=== PATIENT | female | born 1960 | race African-American/Black ===

== ENCOUNTER 2016-12-08 14:16 | Observation (INO) | payer BC, OTHER ==
[~2016-12-08] VITALS: Ht 172.7 cm; Wt 156.7 kg
[~2016-12-08 14:16] MED LIST: Aspirin E.C. PO; CALAN120 MG PO; CORTISONE INJECTION IU; CYANOCOBALAMI100 MCG PO; ECZEMA CREAM TP; FLECAINIDE ACE100 MG PO; FLECAINIDE ACET50 MG PO; HYDROCHLOROTHIA25 MG PO; NEURONTIN100 MG PO; ST. JOSEPH ASPI81 MG PO; TAMBOCOR50 MG PO; VENTOLIN HFA18 GM IH; VERAPAMIL HCL120 M2 PO; VERAPAMIL HCL120 MG PO; XARELTO20 MG PO
[2016-12-08 15:22] LABS: BASOPHIL COUNT 0.1 K/uL (0-0.1); EOSINOPHIL (%) 3.2 % (0-5); EOSINOPHIL COUNT 0.2 K/uL (0-0.3); IMMATURE GRANULOCYTE (%) 0.2 % (0.0-0.7); INSTRUMENT ABS NEUTROPHIL CT 2.4 K/uL; MCH 30.5 PG (29.0-34.0); MCHC 32.4 G/DL (30.0-36.0); MCV 94.1 FL (83-99); MEAN PLAT.VOLUME 9.4 uM^3 (9.5-12.4); MONOCYTE (%) 11.9 % (3-12); MONOCYTE COUNT 0.6 K/uL (0-0.8); NEUTROPHIL (%) 45.9 % (45-76); NEUTROPHIL COUNT 2.4 K/uL (1.8-6.4); PLATELET COUNT 247 K/uL (156-360); RBC DIS.WIDTH-CV 13.2 % (11.8-14.6); RBC DIS.WIDTH-SD 45.6 % (39-53); RED BLOOD COUNT 4.78 M/uL (3.80-5.20); WHITE BLOOD COUNT 5.3 K/uL (4.1-10.2)
[2016-12-08 15:27] LABS: PROTHROMBIN TIME 11.5 SEC (10.2-12.9)
[2016-12-08 15:33] LABS: CHLORIDE 108 mEq/L (99-109); POTASSIUM 4.3 mEq/L (3.7-5.4); SODIUM 143 mEq/L (136-147)
[2016-12-08 15:34] LABS: GLUCOSE 88 mg/dL (70-99)
[2016-12-08 15:36] LABS: ANION GAP 10 MEQ/L (2-14)
[2016-12-08 15:38] LABS: GFR ESTIMATE (CALCULATED) > 59 mL/min/
[2016-12-08 15:39] LABS: UREA NITROGEN (BUN) 11 mg/dL (9-23)
[2016-12-08 15:42] LABS: TROP-I INTERPRETATION NEGATIVE; TROPONIN-I < 0.01 ng/mL (0.0-0.30)
[2016-12-08] MEDS ORDERED: PHENTERMINE HCL30 MG PO (21:32)
[2016-12-08] MEDS ORDERED: NAPROSYN250 MG PO (21:33)
[2016-12-08 22:23] LABS: MAGNESIUM 1.9 mg/dl (1.3-2.7)
[2016-12-08 22:34] LABS: TROP-I INTERPRETATION NEGATIVE; TROPONIN-I 0.03 ng/mL (0.0-0.30)
[2016-12-08 22:42] VITALS: BP 118/76
[2016-12-09 04:09] VITALS: BP 105/59
[2016-12-09 04:47] LABS: HEMATOCRIT 39.4 % (36.0-46.0); MCH 30.9 PG (29.0-34.0); MCHC 32.7 G/DL (30.0-36.0); MCV 94.3 FL (83-99); MEAN PLAT.VOLUME 9.5 uM^3 (9.5-12.4); PLATELET COUNT 223 K/uL (156-360); RBC DIS.WIDTH-CV 13.2 % (11.8-14.6); RBC DIS.WIDTH-SD 45.9 % (39-53); RED BLOOD COUNT 4.18 M/uL (3.80-5.20); WHITE BLOOD COUNT 5.8 K/uL (4.1-10.2)
[2016-12-09 05:02] LABS: CHLORIDE 109 mEq/L (99-109); POTASSIUM 4.1 mEq/L (3.7-5.4); SODIUM 142 mEq/L (136-147)
[2016-12-09 05:03] LABS: GLUCOSE 107 mg/dL (70-99)
[2016-12-09 05:05] LABS: ANION GAP 10 MEQ/L (2-14)
[2016-12-09 05:07] LABS: GFR ESTIMATE (CALCULATED) > 59 mL/min/
[2016-12-09 05:08] LABS: TROP-I INTERPRETATION NEGATIVE; TROPONIN-I < 0.01 ng/mL (0.0-0.30); UREA NITROGEN (BUN) 11 mg/dL (9-23)
[2016-12-09 07:30] VITALS: BP 112/71
[2016-12-09 11:42] VITALS: BP 102/62
[2016-12-09] MEDS ORDERED: CARDIZEM60 MG PO (12:11)
[2016-12-09 12:13] LABS: ADD MIUA? NO; BILIRUBIN NEGATIVE; BLOOD NEGATIVE; COLOR YELLOW ((YELLOW)); GLUCOSE (STRIP) NEGATIVE; KETONES NEGATIVE; LEUKOCYTES NEGATIVE; NITRITE NEGATIVE; PROTEIN (STRIP) NEGATIVE; SPECIFIC GRAVITY 1.017 (1.000-1.030); UROBILINOGEN 0.2 MG/DL (0.2-1.0)
[2016-12-09 12:16] LABS: UCUL ADDED? NO
== END 2016-12-09 16:10 | disposition home or self-care (01) ==
LOC: EME 14:16 → EDOF 21:13 → 4EAST 21:13 → ENRESERV 21:14 → 4EAST 21:48
PROVIDERS: Emergency Medicine; Hospitalist
DX: I48.0 Paroxysmal atrial fibrillation (principal); G47.33 Obstructive sleep apnea (adult) (pediatric); Z91.14 Patient's other noncompliance with medication regimen; E66.01 Morbid (severe) obesity due to excess calories; Z68.43 Body mass index [BMI] 50.0-59.9, adult; J30.9 Allergic rhinitis, unspecified; K21.9 Gastro-esophageal reflux disease without esophagitis; I27.2 Other secondary pulmonary hypertension; E55.9 Vitamin D deficiency, unspecified; Z79.82 Long term (current) use of aspirin; Z82.49 Family history of ischemic heart disease and other diseases of the circulatory system; Z83.3 Family history of diabetes mellitus; Z88.8 Allergy status to other drugs, medicaments and biological substances
CPT/HCPCS: 71010; 80048; 81003; 83735; 84443; 84484; 85025; 85027; 85379; 85610; 85730; 93005; 94660; 99281; 99285; G0378; J1650; J7050

== ENCOUNTER 2017-05-08 17:14 | Emergency (ER) | payer BC ==
[~2017-05-08] VITALS: Ht 172.7 cm; Wt 148.7 kg
[~2017-05-08 17:14] MED LIST changes: +CARDIZEM60 MG PO; +NAPROSYN250 MG PO; +PHENTERMINE HCL30 MG PO
[2017-05-08 19:39] LABS: HEMATOCRIT 41.3 % (36.0-46.0); MCH 31.7 PG (29.0-34.0); MCHC 33.9 G/DL (30.0-36.0); MCV 93.4 FL (83-99); PLATELET COUNT 241 K/uL (156-360); RBC DIS.WIDTH-CV 12.7 % (11.8-14.6); RBC DIS.WIDTH-SD 43.8 % (39-53); RED BLOOD COUNT 4.42 M/uL (3.80-5.20); WHITE BLOOD COUNT 6.3 K/uL (4.1-10.2)
[2017-05-08 19:52] LABS: CHLORIDE 105 mEq/L (99-109); POTASSIUM 4.3 mEq/L (3.7-5.4); SODIUM 138 mEq/L (136-147)
[2017-05-08 19:54] LABS: GLUCOSE 88 mg/dL (70-99); TOTAL PROTEIN 7.4 g/dL (6.4-8.3)
[2017-05-08 19:56] LABS: TOTAL BILIRUBIN 0.5 mg/dL (0.0-1.0)
[2017-05-08 19:58] LABS: ALKALINE PHOSPHATASE 85 IU/L (3-129); CREATININE 0.9 mg/dL (0.6-1.3); GFR ESTIMATE (CALCULATED) > 59 mL/min/
[2017-05-08 19:59] LABS: UREA NITROGEN (BUN) 17 mg/dL (9-23)
[2017-05-08 20:00] LABS: AST (GOT) 12 IU/L (2-34)
[2017-05-08 20:01] LABS: ALT (GPT) 11 IU/L (3-49)
[2017-05-08 20:04] LABS: TROP-I INTERPRETATION NEGATIVE; TROPONIN-I < 0.01 ng/mL (0.0-0.30)
[2017-05-08 21:44] LABS: THYROTROPIN (TSH) 2.4 MIU/L (0.4-5.5)
[2017-05-08 22:35] LABS: TROP-I INTERPRETATION NEGATIVE; TROPONIN-I < 0.01 ng/mL (0.0-0.30)
[2017-05-08 22:57] VITALS: BP 105/83
== END 2017-05-08 22:57 | disposition home or self-care (01) ==
LOC: EME 17:14
PROVIDERS: Emergency Medicine
DX: M75.42 Impingement syndrome of left shoulder (principal); R07.9 Chest pain, unspecified; I48.91 Unspecified atrial fibrillation; J45.909 Unspecified asthma, uncomplicated; G47.30 Sleep apnea, unspecified; Z79.82 Long term (current) use of aspirin
CPT/HCPCS: 71046; 73030; 80053; 84443; 84484; 85027; 93005; 99281; 99284

== ENCOUNTER → 2017-06-30 | Outpatient (CLI) | payer BC ==
[~2017-06-30] VITALS: Ht 174 cm; Wt 147.0 kg
[~2017-06-30] MED LIST changes: +LO-DOSE ASPIRIN81 M1 PO; +ZOVIRAX400 MG PO; +ZYBAN 150 MG T150 MG PO
== END | disposition home or self-care (01) ==
LOC: AMB 14:00
DX: K25.9 Gastric ulcer, unspecified as acute or chronic, without hemorrhage or perforation (principal); K29.50 Unspecified chronic gastritis without bleeding; K44.9 Diaphragmatic hernia without obstruction or gangrene; E66.9 Obesity, unspecified; Z68.43 Body mass index [BMI] 50.0-59.9, adult; J45.909 Unspecified asthma, uncomplicated; M19.90 Unspecified osteoarthritis, unspecified site; G47.33 Obstructive sleep apnea (adult) (pediatric); Z79.82 Long term (current) use of aspirin
CPT/HCPCS: 88305; 88342 TC; J2250